=== PATIENT | female | born 1945 | race Caucasian/White ===

== ENCOUNTER → 2017-04-08 | Outpatient (CLI) | payer MEDICARE, BC ==
[~2017-04-08] MED LIST: ALBU8.5H5 INH; BUDE10.2 INH; CITA20TA5 PO; ESOM40CA PO; FLUT12HF2 INH; FURO20TA3 PO; HYDR-3241 PO; LEVO50TA PO; LEVO75TA5 PO; LOSA100T6 PO; POTA20TA91 PO; PRAV40TA2 PO; TADA20TA33 PO
== END | disposition home or self-care (01) ==
LOC: CFH 13:54
PROVIDERS: ATTEND Internal Medicine Cardiovascular Disease
DX: I11.0 Hypertensive heart disease with heart failure (principal); I50.30 Unspecified diastolic (congestive) heart failure; I07.1 Rheumatic tricuspid insufficiency; I27.2 Other secondary pulmonary hypertension; E78.5 Hyperlipidemia, unspecified; E65 Localized adiposity; R06.00 Dyspnea, unspecified
CPT/HCPCS: 93306

== ENCOUNTER → 2017-09-30 | Outpatient (CLI) | payer MEDICARE, BC | LOC: CFH 10:35 | PROVIDERS: ATTEND Internal Medicine Cardiovascular Disease | DX: I08.0 Rheumatic disorders of both mitral and aortic valves (principal); E78.5 Hyperlipidemia, unspecified; I27.20 Pulmonary hypertension, unspecified | CPT/HCPCS: 93306 ==

== ENCOUNTER 2018-02-22 10:34 | Inpatient (IN) | payer MEDICARE, BC ==
[2018-02-20 14:43] LABS: ALBUMIN 3.3 g/dL (3.4-5.0); ANION GAP 9 mmol/L (5-15); CALCIUM 8.8 mg/dL (8.5-10.1); CHLORIDE 108 mmol/L (98-107)
[2018-02-20 14:47] LABS: ALANINE AMINOTRANSFERASE 23 U/L (12-78); ALKALINE PHOSPHATASE 97 U/L (45-117); BILIRUBIN,TOTAL 0.7 mg/dL (0.2-1.0); CREATININE 1.09 mg/dL (0.55-1.02); TOTAL PROTEIN 7.2 g/dL (6.4-8.2)
[~2018-02-22] VITALS: Ht 147.3 cm; Wt 85.9 kg
[~2018-02-22 10:34] MED LIST changes: +ALBU8.5H8 INH; +ASCO-184 PO; +BUPIVACAINE/PF 0.25% ONE; +CALC1CAP8 PO; +FLUT12HF3 IH; +LACT1CAP37 PO; +LOSA50TA2 PO; +PRAV40TA PO; +TIOT18CA INH
[2018-02-22] MEDS ORDERED: LACTATED RINGERS 1,000 ML IV SCH (11:23)
[2018-02-22] MEDS ORDERED: LIDOCAINE-MPF 1%, 2ML INFIL ONE (11:30)
[2018-02-22] MEDS ORDERED: FENTANYL PF 250 MCG/5ML ONE (11:49)
[2018-02-22] MEDS ORDERED: ROCURONIUM 10 MG/ML,10ML ONE (12:26)
[2018-02-22] MEDS ORDERED: SUCCINYLCHOLINE 20 MG/ML, 10ML ONE (14:12)
[2018-02-22] MEDS ORDERED: CEFAZOLIN 1,000 MG ONE (14:12)
[2018-02-22] MEDS ORDERED: GLYCOPYRROLATE 0.2MG/1ML, 5ML ONE (14:12)
[2018-02-22] MEDS ORDERED: DEXAMETHASONE 4 MG/ML, 1ML ONE (14:12)
[2018-02-22] MEDS ORDERED: ONDANSETRON 2MG/ML, 2ML ONE (14:12)
[2018-02-22] MEDS ORDERED: NEOSTIGMINE 1 MG/ML, 10ML ONE (14:12)
[2018-02-22] MEDS ORDERED: PROPOFOL 10 MG/ML, 20ML ONE (14:12)
[2018-02-22] MEDS ORDERED: DIPHENHYDRAMINE 50 MG/ML, 1ML IV PRN (14:30)
[2018-02-22] MEDS ORDERED: MORPHINE SULFATE 4 MG/ML, 1ML IV PRN ×2 (14:30→15:23)
[2018-02-22] MEDS ORDERED: ALBUTEROL SULFATE INH PRN (14:30)
[2018-02-22] MEDS ORDERED: ONDANSETRON 2MG/ML, 2ML IVPush PRN ×2 (14:30→15:00)
[2018-02-22] MEDS ORDERED: ENALAPRILAT 1.25 MG/ML, 2ML IV PRN (14:30)
[2018-02-22] MEDS ORDERED: hydrALAzine 20 MG/ML, 1ML IV PRN ×2 (14:30→15:00)
[2018-02-22] MEDS ORDERED: LORazepam 2 MG/ML, 1ML IV PRN (14:30)
[2018-02-22] MEDS ORDERED: PROMETHAZINE 25 MG/ML, 1ML IM PRN (14:30)
[2018-02-22] MEDS ORDERED: PROMETHAZINE 12.5 MG SUPP PR PRN (14:30)
[2018-02-22] MEDS ORDERED: ACETAMINOPHEN 650 MG/20.3 ML UDC ONE (14:37)
[2018-02-22] MEDS ORDERED: MORPHINE SULFATE 4 MG/ML, 1ML ONE ×2 (14:37→14:57)
[2018-02-22] MEDS ORDERED: OXYcodone 5 MG/5 ML ORAL.SOL UDC ONE (14:37)
[2018-02-22] MEDS ORDERED: FENTANYL PF 100 MCG/2ML ONE ×2 (14:37→15:09)
[2018-02-22] MEDS: FENTANYL PF 100 MCG/2ML IV PRN ×4 (14:48→15:18)
[2018-02-22] MEDS: morphine SULFATE 10 MG/ML, 1ML IV PRN ×4 (14:48→15:07)
[2018-02-22] MEDS ORDERED: KETOROLAC 30 MG/1 ML ONE (14:57)
[2018-02-22] MEDS: KETOROLAC 30 MG/1 ML IV PRN (14:59)
[2018-02-22] MEDS ORDERED: OXYcodone 5 MG/5 ML ORAL.SOL UDC PO PRN (15:00)
[2018-02-22] MEDS ORDERED: PROMETHAZINE 25 MG/ML, 1ML IV PRN (15:00)
[2018-02-22] MEDS ORDERED: MEPERIDINE/PF 25MG/0.5ML IVPush PRN (15:00)
[2018-02-22] MEDS ORDERED: LABETALOL 5MG/ML, 20ML IV PRN (15:00)
[2018-02-22] MEDS ORDERED: ACETAMINOPHEN 325 MG TABLET PO PRN (15:00)
[2018-02-22] MEDS ORDERED: MIDAZOLAM 1 MG/ML, 2ML IV PRN (15:00)
[2018-02-22] MEDS ORDERED: MEPERIDINE/PF 25MG/0.5ML ONE (15:25)
[2018-02-22 16:09] VITALS: BP 123/69
[2018-02-22] MEDS: LACTATED RINGERS 1,000 ML IV SCH ×2 (16:35→18:20)
[2018-02-22] MEDS: FAMOTIDINE 20 MG/2 ML IV SCH (17:11)
[2018-02-22 19:06] VITALS: BP 103/60
[2018-02-22] MEDS: FLUTICASONE IH SCH (21:00)
[2018-02-22] MEDS: SALMETEROL IH SCH (21:00)
[2018-02-22] MEDS ORDERED: ALBUTEROL SULFATE 2.5 MG/3 ML ONE (22:46)
[2018-02-22] MEDS ORDERED: ALBUTEROL SULFATE 2.5 MG/3 ML NPPB PRN (23:30)
[2018-02-23] MEDS: KETOROLAC 30 MG/1 ML IV PRN ×3 (00:32→12:39)
[2018-02-23 01:27] VITALS: BP 106/56
[2018-02-23] MEDS: LEVOTHYROXINE 50 MCG TABLET PO SCH (06:33)
[2018-02-23 07:49] VITALS: BP 123/63
[2018-02-23] MEDS ORDERED: HYDROcodone/APAP 7.5-325MG/15ML UDC PO PRN (08:00)
[2018-02-23] MEDS: ENOXAPARIN 40 MG/0.4 ML SQ SCH (08:52)
[2018-02-23] MEDS: FAMOTIDINE 20 MG/2 ML IV SCH ×2 (08:52→20:19)
[2018-02-23] MEDS: Tadalafil** (Adcirca**) 40 MG) PO SCH (09:00)
[2018-02-23] MEDS: FLUTICASONE IH SCH ×2 (11:11→20:24)
[2018-02-23] MEDS: Tiotropium Bromide** (Spiriva**) 18 MCG) INH SCH (11:11)
[2018-02-23] MEDS: SALMETEROL IH SCH ×2 (11:11→20:24)
[2018-02-23 12:14] VITALS: BP 131/63
[2018-02-23 18:46] VITALS: BP 127/65
[2018-02-24 01:48] VITALS: BP 118/60
[2018-02-24] MEDS: LEVOTHYROXINE 50 MCG TABLET PO SCH (05:28)
[2018-02-24 07:38] VITALS: BP 139/68
[2018-02-24] MEDS: Tiotropium Bromide** (Spiriva**) 18 MCG) INH SCH (08:56)
[2018-02-24] MEDS: FLUTICASONE IH SCH (08:56)
[2018-02-24] MEDS: SALMETEROL IH SCH (08:56)
[2018-02-24] MEDS: FAMOTIDINE 20 MG/2 ML IV SCH (08:56)
[2018-02-24] MEDS: ENOXAPARIN 40 MG/0.4 ML SQ SCH (08:56)
[2018-02-24] MEDS: Tadalafil** (Adcirca**) 40 MG) PO SCH (08:56)
== END 2018-02-24 11:50 | disposition home or self-care (01) | DRG 327 ==
LOC: ORIP 10:34 → 4NOR 16:00
PROVIDERS: ADMIT Thoracic Surgery (Cardiothoracic Vascular Surgery); ATTEND Thoracic Surgery (Cardiothoracic Vascular Surgery)
PROC: 0BUT4KZ Supplement Diaphragm with Nonautologous Tissue Substitute, Percutaneous Endoscopic Approach (ICD-10-PCS; 2018-02-22)
PROC: 0DV44ZZ Restriction of Esophagogastric Junction, Percutaneous Endoscopic Approach (ICD-10-PCS; principal; 2018-02-22 12:30)
DX: K44.9 Diaphragmatic hernia without obstruction or gangrene (principal); E44.1 Mild protein-calorie malnutrition; Z99.81 Dependence on supplemental oxygen; R13.10 Dysphagia, unspecified; Z68.38 Body mass index [BMI] 38.0-38.9, adult
CPT/HCPCS: 36415; 80053; 93005; 94640; J0690; J1100; J1650; J1885; J2175; J2405; J2704; J2710; J3010; J3490; J0330; J2270; J7120; Q4116; S0028

== ENCOUNTER → 2018-04-11 | Outpatient (CLI) | payer MEDICARE, BC ==
[~2018-04-11] MED LIST changes: -BUPIVACAINE/PF 0.25% ONE
== END | disposition home or self-care (01) ==
LOC: CFH 13:20
PROVIDERS: ATTEND Thoracic Surgery (Cardiothoracic Vascular Surgery)
DX: K22.8 Other specified diseases of esophagus (principal); K44.9 Diaphragmatic hernia without obstruction or gangrene
CPT/HCPCS: 74241